=== PATIENT | female | born 1970 | race Caucasian/White ===

== ENCOUNTER 2018-07-13 04:39 | Emergency (ER) | payer OTHER ==
[~2018-07-13] VITALS: Ht 170.2 cm; Wt 64.9 kg
--- NOTE | 2018-07-13 05:15 | NUR ---
Pt BIBSELF C/O SUICIDAL IDEATIONS. WITH +VOICES FOR THE PAST MONTH. Pt CAME IN VOLUNTARY FOR MEDICAL CLEARANCE TO BE ACCEPTED TO [facility]. Pt IS RESTING COMFORTABLY IN BED. NO S/S OF ACUTE DISTRESS OR SOB NOTED. RESPIRATIONS EVEN AND UNLABORED. Pt BEING SEEN BY MD AT BEDSIDE.
[2018-07-13 05:23] LABS: APPEARANCE,URINE SL CLOUDY (CLEAR); BILIRUBIN,URINE NEGATIVE (NEGATIVE); BLOOD, URINE NEGATIVE Ery/uL (NEGATIVE); COLOR,URINE YELLOW (YELLOW); KETONES,URINE NEGATIVE (NEGATIVE); LEUKOCYTE ESTERASE ,URINE 1+ (NEGATIVE); NITRITE, URINE NEGATIVE (NEGATIVE); PROTEIN,URINE NEGATIVE (NEGATIVE); UGLUCOSE NEGATIVE (NEGATIVE); UROBILINOGEN,URINE 0.2 EU/dL (0.2)
[2018-07-13 05:23] LABS: BASOPHILS % (AUTO) 0.4 % (0.0-2.0); EOSINOPHILS % (AUTO) 1.1 % (0.0-6.0); HEMATOCRIT 46 % (33-45); HEMOGLOBIN 15.7 g/dL (11.5-14.8); LYMPHOCYTES # (AUTO) 3.6 /CMM (0.8-4.8); LYMPHOCYTES % (AUTO) 46.5 % (20.0-44.0); MEAN CORPUSCULAR HGB CONC 35 g/dl (31.0-36.0); MEAN CORPUSCULAR VOLUME 92 fL (82-100); MONOCYTES # (AUTO) 0.6 /CMM (0.1-1.30); MONOCYTES % (AUTO) 7.2 % (2.0-12.0); NEUTROPHILS # (AUTO) 3.4 /CMM (1.8-8.9); NEUTROPHILS % (AUTO) 44.8 % (43.0-81.0); PLATELET COUNT (AUTO) 224 /CMM (150-450); RED BLOOD CELL COUNT(AUTO) 4.97 MIL/uL (4.0-5.2); WHITE BLOOD COUNT (AUTO) 7.6 K/uL (4.3-11.0)
--- NOTE | 2018-07-13 05:23 | NUR ---
URINE COLLECTED AND SENT WITH LAB. LABS DRAWN.
--- NOTE | 2018-07-13 05:26 | NUR ---
CALLED [facility] FOR BLS TRANSPORT TO [facility]. REQUESTED A WILL CALL EMERGENCY DEPARTMENT MANAGER TIME OF 629 RUN #: [id number]
[2018-07-13 05:28] LABS: BACTERIA,URINE Few /HPF (None Seen); RBC,URINE 0-2 /HPF (0-2); SQUAMOUS EPITHELIAL CELL,UR Few /HPF (None Seen)
[2018-07-13 05:29] LABS: CALCIUM, SERUM 8.9 mg/dL (8.5-10.1); CARBON DIOXIDE 30 mmol/L (21-32); CHLORIDE 104 mmol/L (98-107); CREATININE 0.7 mg/dL (0.6-1.3); GLUCOSE 94 mg/dL (74-106); POTASSIUM 3.6 mmol/L (3.5-5.1); SODIUM SERUM 142 mmol/L (136-145); UREA NITROGEN, BLOOD 16 mg/dL (7-18)
[2018-07-13 05:35] LABS: ALANINE AMINOTRANSFERASE 19 U/L (12-78); ALBUMIN 3.5 g/dL (3.4-5.0); ALCOHOL, BLOOD < 3 mg/dL (0-0); ALKALINE PHOSPHATASE 99 U/L (46-116); ASPARTATE AMINOTRANSFERASE 13 U/L (15-37); BILIRUBIN,DIRECT 0.1 mg/dL (0.0-0.2); BILIRUBIN,TOTAL 0.3 mg/dL (0.2-1.0); TOTAL PROTEIN, SERUM 6.7 g/dL (6.4-8.2)
--- NOTE | 2018-07-13 06:21 | NUR ---
Pt IS RESTING COMFORTABLY IN BED. EASILY AWAKENED BY NAME. NO S/S OF ACUTE DISTRESS OR SOB NOTED. RESPIRATIONS EVEN AND UNLABORED.
--- NOTE | 2018-07-13 06:29 | NUR ---
CALLED [facility] FOR BLS TRANSPORT TO [facility]. REQUESTED A WILL CALL DIVERSITY MANAGER TIME OF 829 RUN #: [id number]
--- NOTE | 2018-07-13 06:34 | NUR ---
PT ACCEPTED AT [facility] ADMITTING DR. JUARES [phone]
--- NOTE | 2018-07-13 06:45 | NUR ---
CALLED [facility]. GAVE REPORT TO JUAN A VELA. INFORMED THAT ETA FUR DRESSER AT [facility] IS 0830.
--- NOTE | 2018-07-13 07:04 | NUR ---
Note sigrid in EDM - 07/13/18 at 0710 by CHANG AMBULNZ UNABLE TO GET PT'S INSURANCE TO COVER THE TRANSFER TO [facility]. FAMILY STATES HE IS WILLING TO DRIVE THE PT TO [facility]. MADE AWARE. NO S/S OF DISTRESS UPON DISCHARGE TO [facility]. PT AMBULATED WITH STEADY GAIT NOTED.
--- NOTE | 2018-07-13 07:30 | NUR ---
REPORT RECEIVED FROM FORREST VELAZCO FOR BHARATH
--- NOTE | 2018-07-13 07:30 | NUR ---
gave report to cory VELAZCO for pt's salena
--- NOTE | 2018-07-13 07:59 | NUR ---
SPOKE TO [facility] OF CRISIS TEAM, ETA [phone]
[2018-07-13 08:32] VITALS: BP 100/61
--- NOTE | 2018-07-13 09:08 | NUR ---
Patient picked up by [facility] in stable condition, will be brought to [facility].
== END 2018-07-13 09:15 ==
LOC: ER 04:45
DX: R45.851 Suicidal ideations (principal); R44.0 Auditory hallucinations; F32.9 Major depressive disorder, single episode, unspecified; F41.9 Anxiety disorder, unspecified; I10 Essential (primary) hypertension; J44.9 Chronic obstructive pulmonary disease, unspecified; F12.10 Cannabis abuse, uncomplicated; F17.200 Nicotine dependence, unspecified, uncomplicated; Z98.51 Tubal ligation status; Z90.710 Acquired absence of both cervix and uterus
CPT/HCPCS: 36415; 80048; 80076; 80305; 80307; 81001; 84703; 85025; 87086; 99285; A4606; Z7610; 81000-TC; G0480